=== PATIENT | female | born 1995 | race American Indian/Alaskan Native ===

== ENCOUNTER 2018-10-02 18:54 | Emergency (ER) | payer MEDICAID ==
[2018-10-02 19:08] VITALS: BP 123/73
--- NOTE | 2018-10-02 19:21 | Event Note ---
ED Screening Note Date of service: 10/02/18 Time: 19:16 ED Screening Note: 23 y/o female comes in left hip pain. Started having after a fall in August. This initial assessment/diagnostic orders/clinical plan/treatment(s) is/are subject to change based on patients health status, clinical progression and re- assessment by fellow clinical providers in the ED. Further treatment and workup at subsequent clinical providers discretion. Patient/guardian urged not to elope from the ED as their condition may be serious if not clinically assessed and managed. Initial orders include: <DUNCAN GUZMAN - Last Filed: 10/02/18 19:16> ED Screening Note: A physician and/or other qualified medical personnel has recommended that the patient receive further examination and/or treatment beyond their Medical Screening Exam. The risks and benefits were explained. The patient was informed of their right to emergency care. Patient left before final disposition of their medical condition. This note has been generated by me, Dr. Vanesa Black III, MD, the Flight Surveyor for the emergency department. I have not seen this patient personally. <VANESA BLACK - Last Filed: 10/13/18 08:20>
== END 2018-10-02 20:43 | disposition left against medical advice (07) ==
LOC: ED 18:54
DX: M25.552 Pain in left hip (principal); Z53.21 Procedure and treatment not carried out due to patient leaving prior to being seen by health care provider